=== PATIENT | male | born 1940 | race Caucasian/White ===

== ENCOUNTER 2018-04-30 21:22 | Emergency (ER) | payer OTHER ==
[2018-04-30] MEDS ORDERED: NS 1,000 ML IV ONE (22:04)
--- NOTE | 2018-04-30 22:04 | EDPHY ---
General - Diagnostics EKG: I reviewed patient's EKG. See [employer] system for interpretation <Darcie Church - Last Filed: 05/01/18 05:07> - History Smoking Status: Never smoked <Dg Ray - Last Filed: 05/01/18 16:34> Time Seen by Provider: 04/30/18 21:55 Narrative: PHYSICIAN DOCUMENTATION: The patient was evaluated and managed by the Physician Wet End Helper. My co- signature indicates that I have reviewed this chart and I agree with the findings and plan of care as documented. I am the secondary supervising physician. (Darcie Church) CHIEF COMPLAINT: Palpitations HISTORY OF PRESENT ILLNESS: Patient presents by private vehicle with friend and family at bedside. He complains of heart racing he states that he felt "that my heart started racing. " This happened approximately 1-2 hours ago. It was constant but intermittently wax and wane. Described as palpitations but not painful. He did have some minimal pressure and felt as though he had mild shortness of breath at the initial onset. The symptoms have spontaneously resolved with no intervention. He has no history of coronary artery disease or M I. He does have history of sleep apnea, uses CPAP and supplemental oxygen at night. He has no lower extremity erythema edema or pain. No history of venous thrombolic event. He did fly back from [place] earlier today. He has no other associated complaints or modifying factors REVIEW OF SYSTEMS: 10 systems were reviewed and negative with the exception of the elements mentioned in the history of present illness. PCP: Dr. Ashley Domínguez SPECIALISTS: None PAST MEDICAL HISTORY: Dyslipidemia, sleep apnea with CPAP and O2, PAST SURGICAL HISTORY: No recent surgical history SOCIAL HISTORY: One [id number] smoking quitting 25 years ago. Occasional marijuana use. Occasional alcohol use. Lives independently. Works locally FAMILY HISTORY: Noncontributory EXAMINATION: General Appearance: Alert, no distress. Well appearing. Conversing in full sentences. Head: normocephalic, atraumatic Eyes: Pupils equal and round, no conjunctival pallor or injection ENT, Mouth: Mucous membranes moist Neck: Normal inspection, supple, non-tender Respiratory: Lungs are clear to auscultation. No wheezing rhonchi or crackles Cardiovascular: Regular rate and rhythm. No murmur Gastrointestinal: Abdomen is soft and nontender Back: non-tender, no bony abnormalities Neurological: A&O, nonfocal, normal gait Skin: Warm and dry, no rash no petechiae or purpura Extremities: Nontender, no pedal edema Psychiatric: Mood and affect normal DIFFERENTIAL DIAGNOSES: Including but not limited to palpitations, ACS, PE, PSVT, paroxysmal AFib, AFib , a flutter MDM: 10:05 p.m. Palpitations earlier this evening that have spontaneously resolved. He did feel some mild pressure but no chest pain. No shortness of breath. No previous diagnosis of coronary artery disease or CO. No previous stress test or heart catheterization. His heart score is 3, with a pending troponin. He is on a awake overnight monitor. EKG has been reviewed by Dr. Church and I have discussed the case with her. Laboratory studies are pending and chest x-ray has been ordered. I have ordered repeat EKG is he now reports feeling asymptomatic. 10:30 p.m. Repeat EKG has been obtained and reviewed by Dr. Church. Kaqem-dg-weza troponin is 0.01. Chest x-ray pending. 10:55 p.m. Patient re-evaluated. He continues to feel well. We had a very lengthy discussion using the shared decision pathway. He has elected to wait for the 2 hr troponin. Both the patient and his spouse are comfortable this plan. He remains asymptomatic. He is on a awake overnight monitor, resting comfortably in no acute distress. 12:15 a.m. pain of any kind. Patient re-evaluated. He continues to feel well. He has ambulated to the restroom and we will obtain the 2nd troponin. No chest pain. No shortness of breath. Vital signs are within normal limits. 1:10 a.m. Repeat troponin is again negative and unchanged from initial troponin. I have re-evaluated the patient. He still asymptomatic. He has ambulated several times in the emergency department without any lightheadedness, dizziness palpitations. No chest EKG interpretation: Dr. Church SUPERVISION: Patient was independently examined, but I discussed the case with my secondary supervising physician Dr. Church CONSULTATION: (Dg Ray) - Objective Vital Signs: Initial Vital Signs Temperature (C) 98.2 F 04/30/18 21:28 Heart Rate 82 04/30/18 21:28 Respiratory Rate 16 04/30/18 21:28 Blood Pressure 107/66 04/30/18 21:28 O2 Sat (%) 86 L 04/30/18 21:28 O2 Delivery Mode Room Air Allergies/Adverse Reactions: No Known Allergies Allergy (Verified 05/21/12 15:58) Home Medications: Medication Instructions Recorded SIMVASTATIN 04/30/18 Laboratory Results: Laboratory Results 04/30/18 22:13 04/30/18 22:13 Medications Given: Discontinued Medications Sodium Chloride (Ns) 1,000 mls @ 0 mls/hr IV EDNOW ONE; Wide Open PRN Reason: Protocol Stop: 04/30/18 22:05 Last Admin: 04/30/18 22:25 Dose: 1,000 mls Point of Care Test Results: Chemistry 05/01/18 04/30/18 00:35 22:17 POC Troponin I 0.01 ng/mL ng/mL 0.01 ng/mL ng/mL (0.00-0.08) (0.00-0.08) Departure <Darcie Church - Last Filed: 05/01/18 05:07> <Dg Ray - Last Filed: 05/01/18 16:34> - Departure Disposition: Home, Routine, Self-Care Clinical Impression: Palpitations Condition: Good Instructions: Heart Palpitations (ED), Premature Atrial Contractions (ED) Additional Instructions: 1. Contact your primary care physician and maitre d' tomorrow morning to be seen within 48 hr 2. Return here for any return of symptoms, development of chest pain, shortness of breath, fever or loss of consciousness Referrals: [facility] [Other] - As per Instructions Zelalem Muse MD [Medical Doctor] - As per Instructions
[2018-04-30 22:23] LABS: PLATELET COUNT 166 10^3/uL (150-400)
[2018-05-01 01:50] VITALS: BP 143/82
--- NOTE | 2018-05-01 06:11 | CPEKG ---
Test Reason : OPEN Blood Pressure : / mmHG Vent. Rate : 061 BPM Atrial Rate : 061 BPM P-R Int : 181 ms QRS Dur : 108 ms QT Int : 435 ms P-R-T Axes : -03 -67 050 degrees QTc Int : 439 ms Sinus rhythm Left anterior fascicular block Confirmed by Darcie Church ([id number]) on 05/01/2018 6:11:23 AM Referred By: Confirmed By:Darcie Church
--- NOTE | 2018-05-01 13:25 | CPEKG ---
Test Reason : OPEN Blood Pressure : / mmHG Vent. Rate : 108 BPM Atrial Rate : 110 BPM P-R Int : 174 ms QRS Dur : 107 ms QT Int : 351 ms P-R-T Axes : 007 -86 070 degrees QTc Int : 471 ms Sinus tachycardia Left anterior fascicular block Abnormal lateral Q waves ST elevation, consider inferior injury Confirmed by Zuhiar Waters ([id number]) on 05/01/2018 1:24:09 PM Referred By: Confirmed By:Zuhair Waters
== END 2018-05-01 01:50 | disposition home or self-care (01) ==
LOC: MERGE 21:22
DX: R00.2 Palpitations (principal); E86.9 Volume depletion, unspecified; Z87.891 Personal history of nicotine dependence
CPT/HCPCS: 84484-PO